=== PATIENT | female | born 1935 | race Caucasian/White ===

== ENCOUNTER 2017-04-02 11:51 | Emergency (ER) | payer OTHER, BC ==
[2017-04-02 12:05] VITALS: BP 142/73; BMI 18.4
--- NOTE | 2017-04-02 13:00 | DR.GENAD ---
HPI - PCP Primary Care Physician: JEANCARLOS MENDEZ - HPI Comment HPI Comment: PATIENT SAW BLOODIN URINE THIS AM SHE URINATED. NO PAIN. NO FEVER OR DYSURIA. - Complaint/Symptoms Chief Complaint Doctors Comments: PAINLESS HEMATURIA THIS AM. Chief Complaint:: PT STATES " AFTER BREAKFAST AND I URINATED AND I SAW BLOOD AND I HAD A HX"...... DARK RED. Self Treatment fo Chief Complaint: PT DENIES ANY PAIN,, - Nurses notes reviewed Nurses Notes Review: Yes - Source History Provided: Patient - Mode of Arrival Mode of Arrival: Ambulatory - Timing Onset of Chief Complaint: 04/02/17 Came on: Suddenly - Duration Duration: Constant Duration: Hours - Severity Severity: Moderate PMH - PMH Past Medical History: No Past Surgical History: Yes Surgical History: Hysterectomy - Family History History of Family Medical Conditions: Yes Family Medical History: Hypertension Family Medical History Comment: SKIN CANCER,, - Social History Does patient currently use any type of tobacco product: No Have you used tobacco products in the last 12 months: No Type of Tobacco Use: None Does any household member use tobacco: No Alcohol Use: None Do you use any recreational Drugs:: No Lives With: Alone Lives Where: Home - infectious screening In the last 2 months have you had wt loss of >10#?: NO Have you had fever, night sweats or hemotysis?: No Have you traveled outside the country in the last 6 months?: No Isolation: Standard ROS - Review of Systems Constitutional: No Symptoms Reported Eyes: No Symptoms Reported ENTM: No Symptoms Reported Respiratoy: No Symptoms Reported Cardiovascular: No Symptoms Reported Gastrointestinal/Abdominal: No Symptoms Reported Genitourinary: Bleeding (HEMATURIA) Neurological: No Symptoms Reported Musculoskeletal: No Symptoms Reported Integumentary: No Symptoms Reported Hematologic/Lymphatic: No Symptoms Reported Endocrine: No Symptoms Reported All Other Systems: Reviewed and Negative PE - Vital Signs Vitals: Temperature 97.2 F Pulse Rate 66 Respiratory Rate 22 Blood Pressure 142/73 O2 Sat by Pulse Oximetry 100 - General Limitations: No Limitations General Appearance: Alert - Head Head Exam: Normal Inspection - Eyes Eye exam: Normal Appearance - ENT ENT Exam: Normal External Ear Exam External Ear Exam: Normal External Inspection TM/Canal Exam: Bilateral Normal Mouth Exam: Normal Inspection Throat Exam: Normal Inspection - Neck Neck Exam: Normal Inspection - Chest Chest Inspection: Normal Inspection - Respiratory Respiratory Exam: Normal Lung Sounds Bilat Respiratory Exam: Bilateral Clear to Auscultation - Cardiovascular Cardiovascular Exam: Regular Rate, Normal Rhythm, Normal Heart Sounds - Abdominal Exam Abdominal Exam: Normal Bowel Sounds, Soft. negative: Tenderness - Extremities Extremities Exam: Normal Inspection - Back Back Exam: Normal Inspection - Neurologic Neurological Exam: Alert, Oriented X3 - Psychiatric Psychiatric Exam: Normal Affect, Normal Mood - Skin Skin Exam: Normal Color MDM - Differential Diagnosis Differential Diagnosis: HEMATURIA, UTI, KIDNEY STONE Course - Treatment Treatment: SEE ORDERS, - Education/Counseling Education/Counseling: Patient, Education Educated On: Diagnosis, Needs for Follow Up ROR - Labs Reviewed Laboratory Results Reviewed?: Yes Result Diagrams: 04/02/17 13:10 04/02/17 13:10 Laboratory: 04/02/17 12:42 Urine,Clean Catch Urine Culture - Final WBC 8.3 X10^3/uL (3.6-10.0) 04/02/17 13:10 RBC 4.12 X10^6/uL (3.5-5.4) 04/02/17 13:10 Hgb 12.7 g/dL (12.0-16.0) 04/02/17 13:10 Hct 37.6 % (36.0-47.0) 04/02/17 13:10 MCV 91.3 fL (80.0-100.0) 04/02/17 13:10 MCH 30.9 pg (27.0-34.0) 04/02/17 13:10 MCHC 33.8 g/dL (33.0-35.0) 04/02/17 13:10 RDW 12.6 % (11.6-16.5) 04/02/17 13:10 Plt Count 245 X10^3/uL (150.0-450.0) 04/02/17 13:10 MPV 7.9 fL (7.4-11.0) 04/02/17 13:10 Neut % 69.3 % (42.0-75.0) 04/02/17 13:10 Lymph % 22.0 % (21.0-51.0) 04/02/17 13:10 [place] % 6.9 % (0.0-13.0) 04/02/17 13:10 Eos % 1.1 % (0.9-2.9) 04/02/17 13:10 Baso % 0.7 % (0.2-1.0) 04/02/17 13:10 Neut # 5.8 x10^3/uL (2.2-4.8) H 04/02/17 13:10 Lymph # 1.8 X10^3/uL (1.3-2.9) 04/02/17 13:10 [place] # 0.6 x10^3/uL (0.3-0.8) 04/02/17 13:10 Eos # 0.1 x10^3/uL (0.0-0.2) 04/02/17 13:10 Baso # 0.1 X10^3/uL (0.0-0.1) 04/02/17 13:10 Absolute Nucleated RBC 0.1 /100WBC 04/02/17 13:10 Sodium 139 mmol/L (136-145) 04/02/17 13:10 Corrected Sodium TNP 04/02/17 13:10 Potassium 3.9 mmol/L (3.5-5.1) 04/02/17 13:10 Chloride 102 mmol/L (98-107) 04/02/17 13:10 Carbon Dioxide 29.7 mmol/L (21-32) 04/02/17 13:10 BUN 17 mg/dL (7-18) 04/02/17 13:10 Creatinine 0.79 mg/dL (0.55-1.02) 04/02/17 13:10 Est GFR (MDRD) Af Amer > 60 (>60) 04/02/17 13:10 Est GFR (MDRD) Non-Af > 60 (>60) 04/02/17 13:10 Glucose 88 mg/dL (65-99) 04/02/17 13:10 Calcium 9.9 mg/dL (8.5-10.1) 04/02/17 13:10 Corrected Calcium TNP 04/02/17 13:10 Total Bilirubin 0.40 mg/dL (0.2-1.0) 04/02/17 13:10 AST 20 Units/L (15-37) 04/02/17 13:10 ALT 22 Units/L (12-78) 04/02/17 13:10 Alkaline Phosphatase 67 Units/L (46-116) 04/02/17 13:10 Total Protein 7.6 g/dL (6.4-8.2) 04/02/17 13:10 Albumin 3.8 g/dL (3.4-5.0) 04/02/17 13:10 Globulin 3.8 g/dL (2.5-4.5) 04/02/17 13:10 Albumin/Globulin Ratio 1.0 Ratio (1.1-2.1) L 04/02/17 13:10 Specimen Type Clean catch urine 04/02/17 13:23 Urine Color Brown (YELLOW) 04/02/17 13:23 Urine Appearance Hazy (CLEAR) 04/02/17 13:23 Urine pH 7.0 (5.0 - 8.0) 04/02/17 13:23 Ur Specific [place] 1.010 (1.000-1.030) 04/02/17 13:23 Urine Protein 3+ (NEGATIVE) 04/02/17 13:23 Urine Glucose (UA) Negative (NEGATIVE) 04/02/17 13:23 Urine Ketones Negative (NEGATIVE) 04/02/17 13:23 Urine Occult Blood 5+ (NEGATIVE) 04/02/17 13:23 Urine Nitrite Negative (NEGATIVE) 04/02/17 13:23 Urine Bilirubin Negative (NEGATIVE) 04/02/17 13:23 Urine Urobilinogen Normal (NORMAL) 04/02/17 13:23 Ur Leukocyte Esterase 3+ (NEGATIVE) 04/02/17 13:23 Urine RBC 10-15 /HPF (NEGATIVE) 04/02/17 13:23 Urine WBC 10-15 /HPF (NEGATIVE) 04/02/17 13:23 Ur Squamous Epith Cells Few /HPF (NEGATIVE) 04/02/17 13:23 Ur Transition Epith Cell Cancelled 04/02/17 12:42 Ur Renal Epithelial Cell Cancelled 04/02/17 12:42 Calcium Oxalate Crystal Cancelled 04/02/17 12:42 Cystine Crystals Cancelled 04/02/17 12:42 Uric Acid Crystals Cancelled 04/02/17 12:42 Triple Phos Crystals Cancelled 04/02/17 12:42 Tyrosine Crystals Cancelled 04/02/17 12:42 Other Crystals Cancelled 04/02/17 12:42 Amorphous Sediment Trace /HPF (NEGATIVE) 04/02/17 13:23 Urine Bacteria Negative /HPF (NEGATIVE) 04/02/17 13:23 Hyaline Casts Cancelled 04/02/17 12:42 Granular Casts Cancelled 04/02/17 12:42 Fine Granular Casts Cancelled 04/02/17 12:42 Coarse Granular Casts Cancelled 04/02/17 12:42 WBC Casts Cancelled 04/02/17 12:42 Other Casts Cancelled 04/02/17 12:42 Urine Mucus Cancelled 04/02/17 12:42 Urine Trichomonas Cancelled 04/02/17 12:42 Urine Yeast Cancelled 04/02/17 12:42 Urine Sperm Cancelled 04/02/17 12:42 Ur Culture Indicated? No/not indicated 04/02/17 13:23 - XRAY XRAY Interpreted by: Radiologist XRAY Findings: REPORT DISCUSS WITH PATIENT. - Diagnosis Discharge Problem: Hematuria UTI (urinary tract infection) Qualifiers: Urinary tract infection type: site unspecified Hematuria presence: with hematuria Qualified Code(s): N39.0 - Urinary tract infection, site not specified ; R31.9 - Hematuria, unspecified Cholelithiasis Qualifiers: Cholelithiasis location: gallbladder Cholecystitis presence: without cholecystitis Biliary obstruction: without biliary obstruction Qualified Code(s) : K80.20 - Calculus of gallbladder without cholecystitis without obstruction - Discharge Plan Disposition: 01 HOME, SELF-CARE Condition: Stable Prescriptions: Sulfamethoxazole-Trimethoprim [BACTRIM DS TAB 800/160 MG *] 1 tab PO BID #20 tab - Follow ups/Referrals Follow ups/Referrals: ANUSHKA ARSHAD [Primary Care Provider] - 3 days - Instructions Instructions: Urinary Tract Infection, Cholelithiasis, [id number] Additional Instructions: RETURN TO ED IF WORSE.
[2017-04-02 13:24] LABS: BASOPHILS # (AUTO) 0.1 X10^3/uL (0.0-0.1); BASOPHILS % (AUTO) 0.7 % (0.2-1.0); EOSINOPHILS # (AUTO) 0.1 x10^3/uL (0.0-0.2); EOSINOPHILS % (AUTO) 1.1 % (0.9-2.9); HEMATOCRIT 37.6 % (36.0-47.0); HEMOGLOBIN 12.7 g/dL (12.0-16.0); LYMPHOCYTES # (AUTO) 1.8 X10^3/uL (1.3-2.9); MEAN CORPUSCULAR HEMOGLOBIN 30.9 pg (27.0-34.0); MEAN CORPUSCULAR HGB CONC 33.8 g/dL (33.0-35.0); MEAN CORPUSCULAR VOLUME 91.3 fL (80.0-100.0); MEAN PLATELET VOLUME 7.9 fL (7.4-11.0); MONOCYTES # (AUTO) 0.6 x10^3/uL (0.3-0.8); MONOCYTES % (AUTO) 6.9 % (0.0-13.0); NEUTROPHILS # (AUTO) 5.8 x10^3/uL (2.2-4.8); NEUTROPHILS % (AUTO) 69.3 % (42.0-75.0); PLATELET COUNT 245 X10^3/uL (150.0-450.0); RED BLOOD COUNT 4.12 X10^6/uL (3.5-5.4); RED CELL DISTRIBUTION WIDTH 12.6 % (11.6-16.5); WHITE BLOOD COUNT 8.3 X10^3/uL (3.6-10.0)
[2017-04-02 13:31] LABS: ALANINE AMINOTRANSFERASE 22 Units/L (12-78); ALBUMIN 3.8 g/dL (3.4-5.0); ALKALINE PHOSPHATASE 67 Units/L (46-116); ASPARTATE AMINO TRANSFERASE 20 Units/L (15-37); BLOOD UREA NITROGEN 17 mg/dL (7-18); CALCIUM 9.9 mg/dL (8.5-10.1); CARBON DIOXIDE 29.7 mmol/L (21-32); CHLORIDE 102 mmol/L (98-107); CREATININE 0.79 mg/dL (0.55-1.02); GLUCOSE 88 mg/dL (65-99); SODIUM 139 mmol/L (136-145); TOTAL PROTEIN 7.6 g/dL (6.4-8.2); eGFR BLACK RACES > 60 (>60); eGFR NON BLACK RACES > 60 (>60)
[2017-04-02 13:31] LABS: BILIRUBIN,URINE NEGATIVE (NEGATIVE); BLOOD/HEMOGLOBIN,URINE 5+ (NEGATIVE); GLUCOSE, URINE NEGATIVE (NEGATIVE); KETONES,URINE NEGATIVE (NEGATIVE); LEUKOCYTE ESTERASE ,URINE 3+ (NEGATIVE); NITRITES,URINE NEGATIVE (NEGATIVE); PROTEIN,URINE 3+ (NEGATIVE); UROBILINOGEN,URINE NORMAL (NORMAL)
[2017-04-02 13:45] LABS: AMORPHOUS SEDIMENT,UR TRACE /HPF (NEGATIVE); APPEARANCE,URINE HAZY (CLEAR); BACTERIA,URINE NEGATIVE /HPF (NEGATIVE); COLOR,URINE BROWN (YELLOW); SQUAMOUS EPITHELIAL CELL,UR FEW /HPF (NEGATIVE)
--- NOTE | 2017-04-02 13:46 | CT ---
HISTORY: Hematuria Study: CT abdomen and pelvis without contrast Comparison: April 2016 Technique: Multiple axial images of the abdomen and pelvis were obtained from the lung bases to the pubic symph ysis without the administration of IV contrast. Sagittal and coronal reformations were provided. Findings: There is unchanged scarring at the lung bases. The liver, spleen, pancreas, kidneys, and adrenal g lands are unremarkable in their CT appearance. There are several calcified gallstones in a nondisten ded gallbladder.. No significant mesenteric lymphadenopathy or stranding can be observed. No free fluid or free air is seen within the abdomen. The appendix recess surgically absent. There is no ab normal adnexal mass. No bowel wall thickening or bowel dilatation is present. There is mild sigmoid diverticulosis without inflammatory changes.. The base of the urinary bladder funnels to project in ferior to the symphysis pubis. No bladder calculus or mass is demonstrated. 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 IMPRESSION: 1. Cholelithiasis 2. Cystocele 3. Normal upper urinary tracts Reported By:
== END 2017-04-02 14:31 | disposition home or self-care (01) ==
LOC: ER 12:13
DX: K80.20 Calculus of gallbladder without cholecystitis without obstruction (principal); N39.0 Urinary tract infection, site not specified; R31.9 Hematuria, unspecified; N81.10 Cystocele, unspecified
CPT/HCPCS: 36415; 74176; 80053; 81001; 85025; 87086; 99283

== ENCOUNTER → 2017-07-21 | Outpatient (CLI) | payer OTHER, BC ==
--- NOTE | 2017-07-23 09:14 | MG ---
HISTORY: SCREENING Comparison: Multiple priors dating back to May 25, 2011 FINDINGS: Bilateral CC and MLO projections of the right and left breast were obtained. Heterogeneously dense f ibroglandular tissue is seen to be present without significant interval change. No suspicious zain ectural distortion, mass or clustered microcalcifications can be observed to suggest malignancy. No skin thickening or nipple retraction is appreciated. No pathological lymphadenopathy can be identif ied. Benign-appearing calcifications are noted within the right and left breast. IMPRESSION: NO RADIOGRAPHIC EVIDENCE OF MALIGNANCY. ACR CATEGORY 2 - benign findings. FOLLOW-UP EXAM 1 YEAR. Diagnostic CAD was utilized and reviewed. * 0 (ZERO) - ASSESSMENT INCOMPLETE; ADDITIONAL IMAGING IS NEEDED. * 1/ (ONE) - NEGATIVE. * 2/II (TWO) - BENIGN FINDINGS. * 3/III (THREE) - PROBABLY BENIGN FINDING; SHORT INTERVAL FOLLOW-UP SUGGESTED. * 4/IV (FOUR) - SUSPICIOUS ABNORMALITY; BIOPSY SHOULD BE CONSIDERED. * 5/V (FIVE) - HIGHLY SUSPICIOUS OF MALIGNANCY; BIOPSY SHOULD BE PERFORMED. A NEGATIVE X-RAY REPORT SHOULD NOT DELAY BIOPSY IF A DOMINANT OR CLINICALLY SUSPICIOUS MASS IS PRESENT; 4 TO 8 PERCENT OF CANCERS ARE NOT IDENTIFIED BY X-RAY. A NEGA TIVE REPORT MAY REINFORCE THE CLINICAL IMPRESSION. ADENOSIS AND DENSE BREASTS MAY OBSCURE AN UNDERLY ING NEOPLASM. Reported By:
== END ==
LOC: RAD 10:23
PROVIDERS: ATTEND Nurse Practitioner Family
DX: Z12.39 Encounter for other screening for malignant neoplasm of breast (principal)
CPT/HCPCS: 77067

== ENCOUNTER → 2018-01-18 | Outpatient (CLI) | payer OTHER, BC ==
--- NOTE | 2018-01-18 15:34 | RAD ---
Exam: Left knee three views History: 83-year-old female with left knee pain. No reported history of trauma. Comparison: None Findings: Moderate narrowing of the medial femoral compartment is present. However no other evidence of signifi cant degenerative change. No acute bony abnormality or significant knee joint effusion is present. IMPRESSION: Moderate new changes present in the medial femoral compartment. Remainder the exam is unr emarkable.. Reported By:
== END | disposition home or self-care (01) ==
LOC: RAD 14:57
PROVIDERS: ATTEND Internal Medicine
DX: M17.0 Bilateral primary osteoarthritis of knee (principal)
CPT/HCPCS: 73560

== ENCOUNTER 2018-03-14 15:01 | Observation (INO) | payer OTHER, BC ==
[2018-03-14 17:00] LABS: BASOPHILS # (AUTO) 0.1 X10^3/uL (0.0-0.1); BASOPHILS % (AUTO) 0.6 % (0.2-1.0); EOSINOPHILS # (AUTO) 0.3 x10^3/uL (0.0-0.2); HEMATOCRIT 36.7 % (36.0-47.0); HEMOGLOBIN 12.6 g/dL (12.0-16.0); LYMPHOCYTES # (AUTO) 2.5 X10^3/uL (1.3-2.9); LYMPHOCYTES % (AUTO) 29.5 % (21.0-51.0); MEAN CORPUSCULAR HEMOGLOBIN 31.3 pg (27.0-34.0); MEAN CORPUSCULAR HGB CONC 34.3 g/dL (33.0-35.0); MEAN CORPUSCULAR VOLUME 91.1 fL (80.0-100.0); MEAN PLATELET VOLUME 8.1 fL (7.4-11.0); MONOCYTES # (AUTO) 0.7 x10^3/uL (0.3-0.8); MONOCYTES % (AUTO) 8.2 % (0.0-13.0); NEUTROPHILS # (AUTO) 4.9 x10^3/uL (2.2-4.8); NEUTROPHILS % (AUTO) 58.7 % (42.0-75.0); PLATELET COUNT 254 X10^3/uL (150.0-450.0); RED BLOOD COUNT 4.03 X10^6/uL (3.5-5.4); RED CELL DISTRIBUTION WIDTH 12.6 % (11.6-16.5); WHITE BLOOD COUNT 8.4 X10^3/uL (3.6-10.0)
[2018-03-14 17:10] VITALS: BMI 18.8
[2018-03-14 17:18] LABS: ALANINE AMINOTRANSFERASE 28 Units/L (12-78); ALBUMIN 3.9 g/dL (3.4-5.0); ALKALINE PHOSPHATASE 94 Units/L (46-116); ASPARTATE AMINO TRANSFERASE 23 Units/L (15-37); BLOOD UREA NITROGEN 21 mg/dL (7-18); CALCIUM 9.3 mg/dL (8.5-10.1); CARBON DIOXIDE 27.2 mmol/L (21-32); CHLORIDE 104 mmol/L (98-107); CKMB % 2.4 % (<4); CREATINE KINASE 96 Units/L (26-192); CREATINE KINASE MB 2.3 ng/mL (0-4.0); CREATININE 0.81 mg/dL (0.55-1.02); SODIUM 139 mmol/L (136-145); TOTAL PROTEIN 7.5 g/dL (6.4-8.2); TROPONIN I < 0.02 ng/mL (0-1.5); eGFR BLACK RACES > 60 (>60); eGFR NON BLACK RACES > 60 (>60)
--- NOTE | 2018-03-14 17:29 | CT ---
HISTORY: Head injury status post fall. Study: CT brain without contrast Comparison: None. Technique: Multiple axial images of the brain were obtained from the skull base to the vertex without administra tion of IV contrast. Dose reduction techniques including Automated Exposure Control (AEC) and adjust ment of mA and kV were utilized. Findings: Age-related cortical atrophy and chronic small vessel ischemic changes. No acute intraparenchymal hem orrhage or mass can be identified. No extra-axial fluid collections are seen. No alteration in the attenuation of the brain parenchyma can be identified to suggest acute or subacute ischemic change. The ventricular system is symmetric and nondilated. The extracranial structures are grossly unremark able. IMPRESSION: No acute intracranial pathology. Reported By:
--- NOTE | 2018-03-14 17:36 | RAD ---
History: Atrial fibrillation and syncope Study: AP chest Comparison: None Findings: The lungs appear hyperinflated and are grossly clear. There is no edema or effusion or atel ectasis or consolidation. The heart size is normal and the aorta is mildly tortuous. Impression: Hyperinflation suggesting COPD. No definite acute disease. Reported By:
--- NOTE | 2018-03-14 18:10 | DR.H&P ---
H&P - History & Physical for Day of: H&P Date: 03/14/18 - Chief Complaint Chief Complaint: WEAKNESS, FALL WITH HEAD INJURY, RECENTLY DIAGNOSED WITH IRREGULAR HEART RATE - Allergies Allergies/Adverse Reactions: Allergies Allergy/AdvReac Type Severity Reaction Status Date / Time codeine Allergy Verified 03/14/18 17:20 - History of Present Illness History of Present Illness: 83 WF DIRECT ADMIT FROM DR RIDDLE OFFICE WITH CO FALL WITH HEAD INJURY. PT WAS RECENTLY STARTED ON ELIQUIS DUE TO AFIB. PT REPORTS SHE HAD HAD DIZZY SPELLS AND WEAKNESS ON AND OFF FOR SEVERAL WEEKS. PT FAMILY REPORTS SHE HAD EPISODE OF CONFUSION FOLLOWING FALL. PT COULD NOT RECALL NAMES OF FAMILY MEMBERS. PT STATES SHE FEELS OK NOW, FAMILY CONCERNED PT MAY HAVE HAD MINI STROKE. PT HAD PMH OF HTN. PT ADMITTED FOR EVALUATION AND TREATMENT OF ACUTE ILLNESS. - Past Medical History Past Medical History: Arthritis - Past Surgical History Surgical History: Appendectomy, Hysterectomy, Other - Family History Family Medical History: [place] - Social History Type of Tobacco Use: None Does any household member use tobacco: No Alcohol Use: Occasionally Drug Use: None - Review of Systems Constitutional: Weakness Eyes: No Symptoms Reported ENT: No Symptoms Reported Respiratory: No Symptoms Reported Cardiovascular: Palpitations, Light Headedness Gastrointestinal: No Symptoms Reported Genitourinary: No Symptoms Reported Musculoskeletal: Back Pain, Neck Pain Skin: No Symptoms Reported Neurological: Weakness, Confusion (EPISODE OF CONFUSION) - Physical Exam Vital Signs: Temperature 97.9 F Pulse Rate [Left Brachial] 72 Respiratory Rate 20 Blood Pressure [Left Arm] 193/91 Blood Pressure 142/73 O2 Sat by Pulse Oximetry 93 Oriented: Normal Eyes: Normal Ear: Normal Nose: Normal Throat: Normal Respiratory: RLL Diminished, LLL Diminished Cardiovascular: Irregular. negative: Edema Auscultation: Bowel Sounds: Normal Palpation: Normal Tenderness: Normal Skin: Decreased Turgur Musculoskeletal: Right, Left, Hip, Back:Lumbar Psychiatric: Anxiety Affect: Anxious Speech Pattern: Clear, Appropriate - Assessment/Plan (1) Confusion Status: Acute Plan: S/P FALL, HX RECENT DX OF AFIB. ADMIT TELEMTRY, CT HEAD. ADMISSION LABS INCLUDING CARDIAC ENZYMES, D DIMER, UA. IV HYDRATION. BP CONTROL, AM FLP. PAIN CONTROL, RESUME ELIQUIS IF CT HEAD NEGATIVE (2) Dizziness Status: Acute (3) New onset atrial fibrillation Status: Acute (4) Hypertension Status: Acute (5) Osteoarthritis Status: Acute
[2018-03-14] MEDS ORDERED: ULTRAM PO PRN (18:13)
[2018-03-14] MEDS ORDERED: ATARAX TAB 25 MG PO PRN (18:14)
[2018-03-14] MEDS: ZESTRIL TAB 5 MG PO SCH (18:31)
[2018-03-14 19:04] LABS: CKMB % 2.7 % (<4); CREATINE KINASE 100 Units/L (26-192); CREATINE KINASE MB 2.7 ng/mL (0-4.0); TROPONIN I < 0.02 ng/mL (0-1.5)
[2018-03-14 19:36] LABS: BILIRUBIN,URINE NEGATIVE (NEGATIVE); BLOOD/HEMOGLOBIN,URINE 1+ (NEGATIVE); GLUCOSE, URINE NEGATIVE (NEGATIVE); KETONES,URINE NEGATIVE (NEGATIVE); LEUKOCYTE ESTERASE ,URINE 3+ (NEGATIVE); NITRITES,URINE NEGATIVE (NEGATIVE); PROTEIN,URINE NEGATIVE (NEGATIVE); UROBILINOGEN,URINE NORMAL (NORMAL)
[2018-03-14 19:50] LABS: COLOR,URINE PALE YELLOW (YELLOW)
[2018-03-14 19:51] LABS: APPEARANCE,URINE CLEAR (CLEAR); BACTERIA,URINE NEGATIVE /HPF (NEGATIVE); RBC,URINE 0-2 /HPF (NONE SEEN); SQUAMOUS EPITHELIAL CELL,UR RARE /HPF (NEGATIVE)
--- NOTE | 2018-03-14 21:50 | VAS ---
HISTORY: Syncope, dizziness, atrial fibrillation Study: Carotid ultrasound Comparison: None Technique: Multiple lam scale and color flow Doppler images of the right and left carotid arterial s ystem were obtained. The vertebral arterial system was evaluated as well. Findings: The peak systolic velocity of the right ICA is 87 cm/sec. The peak systolic velocity of the left ICA is 79 cm/sec. The ICA/CCA ratio on the right is 1.1. The ICA/CCA ratio on the left is 0.9. Bilateral antegrade vertebral flow was noted. IMPRESSION: 1. No hemodynamically significant stenosis is appreciated. Reported By:
[2018-03-14] MEDS: ELIQUIS PO SCH (22:23)
[2018-03-15 01:40] LABS: CKMB % 2.7 % (<4); CREATINE KINASE 68 Units/L (26-192); CREATINE KINASE MB 1.8 ng/mL (0-4.0); TROPONIN I < 0.02 ng/mL (0-1.5)
[2018-03-15 05:28] LABS: BASOPHILS # (AUTO) 0.1 X10^3/uL (0.0-0.1); BASOPHILS % (AUTO) 0.9 % (0.2-1.0); EOSINOPHILS # (AUTO) 0.3 x10^3/uL (0.0-0.2); EOSINOPHILS % (AUTO) 4.4 % (0.9-2.9); HEMATOCRIT 33.7 % (36.0-47.0); HEMOGLOBIN 11.7 g/dL (12.0-16.0); LYMPHOCYTES # (AUTO) 2.3 X10^3/uL (1.3-2.9); LYMPHOCYTES % (AUTO) 34.5 % (21.0-51.0); MEAN CORPUSCULAR HEMOGLOBIN 32.1 pg (27.0-34.0); MEAN CORPUSCULAR HGB CONC 34.7 g/dL (33.0-35.0); MEAN CORPUSCULAR VOLUME 92.3 fL (80.0-100.0); MEAN PLATELET VOLUME 8.6 fL (7.4-11.0); MONOCYTES # (AUTO) 0.6 x10^3/uL (0.3-0.8); MONOCYTES % (AUTO) 9.2 % (0.0-13.0); NEUTROPHILS # (AUTO) 3.4 x10^3/uL (2.2-4.8); PLATELET COUNT 213 X10^3/uL (150.0-450.0); RED BLOOD COUNT 3.65 X10^6/uL (3.5-5.4); RED CELL DISTRIBUTION WIDTH 12.7 % (11.6-16.5); WHITE BLOOD COUNT 6.8 X10^3/uL (3.6-10.0)
[2018-03-15 05:50] LABS: ALANINE AMINOTRANSFERASE 23 Units/L (12-78); ALKALINE PHOSPHATASE 75 Units/L (46-116); ASPARTATE AMINO TRANSFERASE 20 Units/L (15-37); BLOOD UREA NITROGEN 19 mg/dL (7-18); CHLORIDE 108 mmol/L (98-107); CKMB % 2.5 % (<4); COR CA(FOR HYPOALB) 8.8 mg/dL (8.5-10.1); CREATINE KINASE 65 Units/L (26-192); CREATINE KINASE MB 1.6 ng/mL (0-4.0); CREATININE 0.81 mg/dL (0.55-1.02); SODIUM 141 mmol/L (136-145); TOTAL PROTEIN 6.1 g/dL (6.4-8.2); TROPONIN I < 0.02 ng/mL (0-1.5); eGFR BLACK RACES > 60 (>60); eGFR NON BLACK RACES > 60 (>60)
[2018-03-15] MEDS: ELIQUIS PO SCH (08:43)
[2018-03-15] MEDS: ZESTRIL TAB 5 MG PO SCH (08:43)
[2018-03-15 12:15] VITALS: BP 142/65
--- NOTE | 2018-03-15 14:58 | RAD ---
HISTORY: Status post fall on Wednesday. Right hip pain. Study: Right hip: Two views. [id number] artifact from the film cassette is noted on the frog leg lateral Comparison: None Findings: Mild osteopenia is noted. Mild degenerative changes present in both sacroiliac joints. The pubic ra mi are intact. Right hip shows minimal acetabular spurring. Very minimal joint space narrowing is noted. The femor al head contour and femoral neck are intact. Similar findings are noted on the left. IMPRESSION: 1. Mild degenerative change in the right hip. 2. No acute bony abnormalities are identified given limitations as described above with regards to t he lateral hip x-rayed. Reported By:
== END 2018-03-15 14:10 | disposition home or self-care (01) ==
LOC: MED/SURG 15:01
PROVIDERS: ADMIT Internal Medicine; ATTEND Internal Medicine
DX: R41.82 Altered mental status, unspecified (principal); S09.8XXA Other specified injuries of head, initial encounter; R42 Dizziness and giddiness; I48.91 Unspecified atrial fibrillation; I10 Essential (primary) hypertension; M19.90 Unspecified osteoarthritis, unspecified site; R94.31 Abnormal electrocardiogram [ECG] [EKG]; W19.XXXA Unspecified fall, initial encounter; M25.551 Pain in right hip
CPT/HCPCS: 36415; 70450; 71045; 73501; 80053; 81001; 82550; 82553; 84484; 85025; 85378; 93005; 93010; 93880; A4222; G0378

== ENCOUNTER 2018-04-16 21:39 | Observation (INO) ==
[2018-04-16 21:53] LABS: BASOPHILS # (AUTO) 0.1 X10^3/uL (0.0-0.1); BASOPHILS % (AUTO) 1.1 % (0.2-1.0); EOSINOPHILS # (AUTO) 0.1 x10^3/uL (0.0-0.2); HEMATOCRIT 36.2 % (36.0-47.0); HEMOGLOBIN 12.3 g/dL (12.0-16.0); LYMPHOCYTES # (AUTO) 2.9 X10^3/uL (1.3-2.9); LYMPHOCYTES % (AUTO) 38.7 % (21.0-51.0); MEAN CORPUSCULAR HEMOGLOBIN 31.4 pg (27.0-34.0); MEAN CORPUSCULAR HGB CONC 34.1 g/dL (33.0-35.0); MEAN CORPUSCULAR VOLUME 91.9 fL (80.0-100.0); MEAN PLATELET VOLUME 7.9 fL (7.4-11.0); MONOCYTES # (AUTO) 0.6 x10^3/uL (0.3-0.8); MONOCYTES % (AUTO) 7.9 % (0.0-13.0); NEUTROPHILS # (AUTO) 3.7 x10^3/uL (2.2-4.8); NEUTROPHILS % (AUTO) 50.3 % (42.0-75.0); PLATELET COUNT 236 X10^3/uL (150.0-450.0); RED BLOOD COUNT 3.93 X10^6/uL (3.5-5.4); RED CELL DISTRIBUTION WIDTH 12.8 % (11.6-16.5); WHITE BLOOD COUNT 7.4 X10^3/uL (3.6-10.0)
--- NOTE | 2018-04-16 21:59 | DR.WEAKNES ---
HPI - Time Seen Time seen: 21:35 - Primary Care Physician Primary Care Physician: JEANCARLOS - Complaints Chief Complaint:: EMS OUT TO UNRESPONSIVE PT AT 2110. PT UNRESPONSIVE UNTIL EMS GOT PT ON STRETCHER. PT AROUSING TO VERBAL STUMILI BUT UNABLE TO SPEAK CLEARLY. SLURRED SPEECH NOTED. VITAL SIGNS 74/57, PULSE 60 RESP 16 O2 96%. RECHECKED VS 137/81, BLOOD SUGAR 134. FAMILY WITNESS PT EVENT HAPPENING. - Reviewed Nurses Notes Reviewed: Yes - Source History Provided: EMS - Mode of Arrival Mode of Arrival: EMS - Timing Onset of Chief Complaint: 04/16/18 Since onset, symptoms are:: Improved Symptom Onset: Known - Context Stroke Symptoms: None PMH - PMH Past Medical History: Yes Past Medical History: Arthritis Past Surgical History: Yes Surgical History: Appendectomy, Hysterectomy, Other Past Surgical History Comment: VARICOUS VEIN - Family History History of Family Medical Conditions: Yes Family Medical History: [place] - Social History Does patient currently use any type of tobacco product: No Have you used tobacco products in the last 12 months: No Type of Tobacco Use: None Does any household member use tobacco: No Alcohol Use: None Do you use any recreational Drugs:: No Lives With: Alone Lives Where: Home - infectious screening In the last 2 months have you had wt loss of >10#?: NO Have you had fever, night sweats or hemotysis?: No Have you traveled outside the country in the last 6 months?: No Isolation: Standard ROS - Review of Systems Constitutional: No Symptoms Reported Eyes: No Symptoms Reported ENTM: No Symptoms Reported Respiratoy: No Symptoms Reported Cardiovascular: No Symptoms Reported Gastrointestinal/Abdominal: No Symptoms Reported Genitourinary: No Symptoms Reported Neurological: Speech Problem, Other (Syncope) Musculoskeletal: No Symptoms Reported Integumentary: No Symptoms Reported Hematologic/Lymphatic: No Symptoms Reported Endocrine: No Symptoms Reported Psychiatric: No Symptoms Reported All Other Systems: Reviewed and Negative PE - General Limitations: Altered Mental Status General Appearance: In No Apparent Distress, Lethargic (but easily aroused) - Head Head Exam: Normal Inspection - Eyes Eye exam: Normal Appearance, PERRL, EOMI - ENT ENT Exam: Normal Exam - Neck Neck Exam: Normal Inspection - Chest Chest Inspection: Normal Inspection, Symmetric Chest Wall Rise - Respiratory Respiratory Exam: Normal Lung Sounds Bilat - Cardiovascular Cardiovascular Exam: Regular Rate, Normal Rhythm, Normal Heart Sounds, +S1, +S2 - Abdominal Exam Abdominal Exam: Normal Inspection, Normal Bowel Sounds, Soft - Extremities Extremities Exam: Normal Inspection - Back Back Exam: Normal Inspection - Neurologic Patient Oriented To: negative: Person, Place, Time Speech: Fluid Speech - Psychiatric Psychiatric Exam: Normal Affect, Normal Mood - Skin Skin Exam: Warm, Dry, Intact, Normal Color - Vital Signs Vitals: Temperature 97.4 F Pulse Rate [Right Radial] 74 Pulse Rate 65 Respiratory Rate 23 Blood Pressure [Left Arm] 171/78 Blood Pressure 123/91 O2 Sat by Pulse Oximetry 100 ROR - Labs Reviewed Result Diagrams: 04/16/18 21:40 04/16/18 21:40 - XRAY XRAY Interpreted by: Radiologist (No acute intracranial abnormality) - EKG Rate: 69 Rhythm: NSR Block: None Hypertrophy: None ST: Normal - Labs Reviewed Laboratory: WBC 7.4 X10^3/uL (3.6-10.0) 04/16/18 21:40 RBC 3.93 X10^6/uL (3.5-5.4) 04/16/18 21:40 Hgb 12.3 g/dL (12.0-16.0) 04/16/18 21:40 Hct 36.2 % (36.0-47.0) 04/16/18 21:40 MCV 91.9 fL (80.0-100.0) 04/16/18 21:40 MCH 31.4 pg (27.0-34.0) 04/16/18 21:40 MCHC 34.1 g/dL (33.0-35.0) 04/16/18 21:40 RDW 12.8 % (11.6-16.5) 04/16/18 21:40 Plt Count 236 X10^3/uL (150.0-450.0) 04/16/18 21:40 MPV 7.9 fL (7.4-11.0) 04/16/18 21:40 Neut % (Auto) 50.3 % (42.0-75.0) 04/16/18 21:40 Lymph % (Auto) 38.7 % (21.0-51.0) 04/16/18 21:40 [place] % (Auto) 7.9 % (0.0-13.0) 04/16/18 21:40 Eos % (Auto) 2.0 % (0.9-2.9) 04/16/18 21:40 Baso % (Auto) 1.1 % (0.2-1.0) H 04/16/18 21:40 Neut # (Auto) 3.7 x10^3/uL (2.2-4.8) 04/16/18 21:40 Lymph # (Auto) 2.9 X10^3/uL (1.3-2.9) 04/16/18 21:40 [place] # (Auto) 0.6 x10^3/uL (0.3-0.8) 04/16/18 21:40 Eos # (Auto) 0.1 x10^3/uL (0.0-0.2) 04/16/18 21:40 Baso # (Auto) 0.1 X10^3/uL (0.0-0.1) 04/16/18 21:40 Absolute Nucleated RBC 0.0 /100WBC 04/16/18 21:40 INR Target Range - 04/16/18 21:40 INR 0.93 (0.8-1.3) 04/16/18 21:40 APTT 25.9 SECONDS (22.9-36.5) 04/16/18 21:40 PTT Comment - 04/16/18 21:40 Fibrinogen 343 mg/dL (239-489) 04/16/18 21:40 Sodium 143 mmol/L (136-145) 04/16/18 21:40 Corrected Sodium 144 mmol/L (136-145) 04/16/18 21:40 Potassium 3.6 mmol/L (3.5-5.1) 04/16/18 21:40 Chloride 104 mmol/L (98-107) 04/16/18 21:40 Carbon Dioxide 26.5 mmol/L (21-32) 04/16/18 21:40 BUN 22 mg/dL (7-18) H 04/16/18 21:40 Creatinine 1.13 mg/dL (0.55-1.02) H 04/16/18 21:40 Est GFR (MDRD) Af Amer 59 (>60) 04/16/18 21:40 Est GFR (MDRD) Non-Af 49 (>60) L 04/16/18 21:40 Glucose 128 mg/dL (65-99) H 04/16/18 21:40 Calcium 9.4 mg/dL (8.5-10.1) 04/16/18 21:40 Corrected Calcium TNP 04/16/18 21:40 Total Bilirubin 0.20 mg/dL (0.2-1.0) 04/16/18 21:40 AST 24 Units/L (15-37) 04/16/18 21:40 ALT 24 Units/L (12-78) 04/16/18 21:40 Alkaline Phosphatase 90 Units/L (46-116) 04/16/18 21:40 Creatine Kinase 102 Units/L (26-192) 04/16/18 21:40 CK-MB (CK-2) 2.5 ng/mL (0-4.0) 04/16/18 21:40 CK/CKMB % Calc 2.5 % (<4) 04/16/18 21:40 Troponin I < 0.02 ng/mL (0-1.5) 04/16/18 21:40 Total Protein 7.3 g/dL (6.4-8.2) 04/16/18 21:40 Albumin 3.9 g/dL (3.4-5.0) 04/16/18 21:40 Globulin 3.4 g/dL (2.5-4.5) 04/16/18 21:40 Albumin/Globulin Ratio 1.1 Ratio (1.1-2.1) 04/16/18 21:40 Triglycerides 80 mg/dL (0-150) 04/16/18 21:40 Cholesterol 210 mg/dL (0-200) H 04/16/18 21:40 LDL Cholesterol, Calc 92 mg/dL (0-100) 04/16/18 21:40 HDL Cholesterol 102 mg/dL (40-60) H 04/16/18 21:40 Cholesterol/HDL Ratio 2.1 (0.0-5.0) 04/16/18 21:40 Specimen Type Catherized urine 04/16/18 22:24 Urine Color Yellow (YELLOW) 04/16/18 22:24 Urine Appearance Clear (CLEAR) 04/16/18 22:24 Urine pH 6.5 (5.0 - 8.0) 04/16/18 22:24 Ur Specific [place] 1.010 (1.000-1.030) 04/16/18 22:24 Urine Protein 1+ (NEGATIVE) 04/16/18 22:24 Urine Glucose (UA) Negative (NEGATIVE) 04/16/18 22:24 Urine Ketones Negative (NEGATIVE) 04/16/18 22:24 Urine Occult Blood Negative (NEGATIVE) 04/16/18 22:24 Urine Nitrite Negative (NEGATIVE) 04/16/18 22:24 Urine Bilirubin Negative (NEGATIVE) 04/16/18 22:24 Urine Urobilinogen Normal (NORMAL) 04/16/18 22:24 Ur Leukocyte Esterase Negative (NEGATIVE) 04/16/18 22:24 Urine RBC 0-2 /HPF (NONE SEEN) 04/16/18 22:24 Urine WBC 0-2 /HPF (NONE SEEN) 04/16/18 22:24 Ur Squamous Epith Cells Few /HPF (NEGATIVE) 04/16/18 22:24 Urine Bacteria Negative /HPF (NEGATIVE) 04/16/18 22:24 Ur Culture Indicated? No/not indicated 04/16/18 22:24 - Diagnosis Discharge Problem: Syncope, Confusion, Hypotension - Discharge Plan Disposition: 09 ADMITTED INPATIENT Condition: Stable - Follow ups/Referrals Follow ups/Referrals: ANUSHKA ARSHAD [Primary Care Provider] - 3 days - Instructions Instructions: Syncope
[2018-04-16 22:10] LABS: BLOOD UREA NITROGEN 22 mg/dL (7-18); CALCIUM 9.4 mg/dL (8.5-10.1); CARBON DIOXIDE 26.5 mmol/L (21-32); CHLORIDE 104 mmol/L (98-107); COR NA(FOR HYPERGLY) 144 mmol/L (136-145); CREATININE 1.13 mg/dL (0.55-1.02); SODIUM 143 mmol/L (136-145); TROPONIN I < 0.02 ng/mL (0-1.5); eGFR NON BLACK RACES 49 (>60)
[2018-04-16 22:26] LABS: ALANINE AMINOTRANSFERASE 24 Units/L (12-78); ALBUMIN 3.9 g/dL (3.4-5.0); ALKALINE PHOSPHATASE 90 Units/L (46-116); ASPARTATE AMINO TRANSFERASE 24 Units/L (15-37); CHOL/HDL RATIO 2.1 (0.0-5.0); CHOLESTEROL 210 mg/dL (0-200); CKMB % 2.5 % (<4); CREATINE KINASE 102 Units/L (26-192); CREATINE KINASE MB 2.5 ng/mL (0-4.0); HDL CHOLESTEROL 102 mg/dL (40-60); TOTAL PROTEIN 7.3 g/dL (6.4-8.2); TRIGLYCERIDES 80 mg/dL (0-150)
--- NOTE | 2018-04-16 22:26 | CT ---
HISTORY: Altered mental status Study: CT brain without contrast Comparison: 03/14/2018 Technique: Multiple axial images of the brain were obtained without administration of IV contrast. Dose reducti on techniques including Automated Exposure Control (AEC) and adjustment of mA and kV were utilized. Findings: There is cerebral volume loss and nonspecific white matter hypoattenuation likely related to chronic microvascular ischemic changes. No evidence of acute hemorrhage, midline shift, mass effect or abnor mal extra-axial fluid collection. The ventricular system is symmetric and nondilated. The soft tiss ues and osseous structures are unremarkable. The visualized paranasal sinuses are clear. IMPRESSION: 1. Stable exam without acute intracranial abnormality. Reported By:
[2018-04-16 22:32] LABS: BILIRUBIN,URINE NEGATIVE (NEGATIVE); BLOOD/HEMOGLOBIN,URINE NEGATIVE (NEGATIVE); GLUCOSE, URINE NEGATIVE (NEGATIVE); KETONES,URINE NEGATIVE (NEGATIVE); LEUKOCYTE ESTERASE ,URINE NEGATIVE (NEGATIVE); NITRITES,URINE NEGATIVE (NEGATIVE); PH,URINE 6.5 (5.0 - 8.0); PROTEIN,URINE 1+ (NEGATIVE); UROBILINOGEN,URINE NORMAL (NORMAL)
[2018-04-16 22:41] LABS: APPEARANCE,URINE CLEAR (CLEAR); COLOR,URINE YELLOW (YELLOW)
[2018-04-16 22:42] LABS: BACTERIA,URINE NEGATIVE /HPF (NEGATIVE); RBC,URINE 0-2 /HPF (NONE SEEN); SQUAMOUS EPITHELIAL CELL,UR FEW /HPF (NEGATIVE)
[2018-04-17 01:02] VITALS: BMI 17.7
[2018-04-17 06:00] LABS: BLOOD UREA NITROGEN 21 mg/dL (7-18); CALCIUM 8.9 mg/dL (8.5-10.1); CARBON DIOXIDE 26.9 mmol/L (21-32); CHLORIDE 106 mmol/L (98-107); CREATININE 0.93 mg/dL (0.55-1.02); SODIUM 141 mmol/L (136-145); eGFR NON BLACK RACES > 60 (>60)
[2018-04-17 06:13] LABS: BASOPHILS # (AUTO) 0.1 X10^3/uL (0.0-0.1); EOSINOPHILS # (AUTO) 0.2 x10^3/uL (0.0-0.2); EOSINOPHILS % (AUTO) 2.5 % (0.9-2.9); HEMATOCRIT 33.6 % (36.0-47.0); HEMOGLOBIN 11.7 g/dL (12.0-16.0); LYMPHOCYTES # (AUTO) 1.9 X10^3/uL (1.3-2.9); LYMPHOCYTES % (AUTO) 25.6 % (21.0-51.0); MEAN CORPUSCULAR HEMOGLOBIN 32.2 pg (27.0-34.0); MEAN CORPUSCULAR HGB CONC 34.8 g/dL (33.0-35.0); MEAN CORPUSCULAR VOLUME 92.4 fL (80.0-100.0); MEAN PLATELET VOLUME 8.1 fL (7.4-11.0); MONOCYTES # (AUTO) 0.8 x10^3/uL (0.3-0.8); MONOCYTES % (AUTO) 11.1 % (0.0-13.0); NEUTROPHILS # (AUTO) 4.4 x10^3/uL (2.2-4.8); NEUTROPHILS % (AUTO) 59.8 % (42.0-75.0); PLATELET COUNT 219 X10^3/uL (150.0-450.0); RED BLOOD COUNT 3.63 X10^6/uL (3.5-5.4); RED CELL DISTRIBUTION WIDTH 12.6 % (11.6-16.5); WHITE BLOOD COUNT 7.3 X10^3/uL (3.6-10.0)
[2018-04-17 07:37] LABS: CKMB % 2.1 % (<4); CREATINE KINASE 81 Units/L (26-192); CREATINE KINASE MB 1.7 ng/mL (0-4.0); TROPONIN I < 0.02 ng/mL (0-1.5)
[2018-04-17] MEDS ORDERED: ASPIRIN PO SCH (09:00)
[2018-04-17] MEDS ORDERED: PATIENT'S HOME MEDICATION (Apixaban [Eliquis] 2.5 MG) PO SCH (09:00)
[2018-04-17] MEDS ORDERED: ELIQUIS PO SCH (09:00)
[2018-04-17] MEDS ORDERED: ASPIRIN EC 81 MG PO SCH (10:00)
[2018-04-17] MEDS ORDERED: PLAVIX PO SCH (15:00)
[2018-04-17] MEDS ORDERED: ZESTRIL TAB 20 MG ONE (16:28)
[2018-04-17] MEDS ORDERED: ZESTRIL TAB 20 MG PO SCH (17:00)
[2018-04-17 17:25] VITALS: BP 175/79
== END 2018-04-17 15:00 | disposition home or self-care (01) ==
LOC: ER 21:39 → ICU 21:39 → UNDODISOB 04-17 15:00
PROVIDERS: ADMIT Obstetrics & Gynecology Obstetrics; ATTEND Internal Medicine
DX: I95.89 Other hypotension; Z79.899 Other long term (current) drug therapy; G45.8 Other transient cerebral ischemic attacks and related syndromes; R55 Syncope and collapse; R73.09 Other abnormal glucose; R94.4 Abnormal results of kidney function studies; R41.82 Altered mental status, unspecified
CPT/HCPCS: 36415; 51702; 70450; 80048; 80053; 80061; 81001; 82550; 82553; 84484; 85025; 85384; 85610; 85730; 93005; 93010; 96365; 99284; A4216; G0378

== ENCOUNTER 2021-09-17 10:56 | Observation (INO) ==
[2021-09-17 11:10] VITALS: BMI 17.6
--- NOTE | 2021-09-17 11:35 | DR.AMS ---
HPI Time Seen Time Seen by Provider: 09/17/21 11:22 PCP Primary Care Physician: Juan David GUPTAP HPI Comment HPI Comment: An 86 y/o female presenting with a c/o speech finding this morning. She was dizzy and had nausea. Her symptoms have subsided. There was no palpitations, SOB or c/p. Complaint Chief Complaint:: PT STATES THAT SHE WAS IN HER YARD, AND THE YARD MAN CALLED FRIENDS AND SHE COULD NOT TALK OR REMEMBERED WHO SHE WAS , DIZZY , AND NAUSEATED THIS STARTED ABOUT AN HOUR AGO, WHEN NEIGHBOR GOT THERE , SHE COULD NOT GET HER WORDS OUT, THAN THE SYMPTOMS SUBSIDED,,, BR Self Treatment fo Chief Complaint: PT WENT TO [facility] AND PT SENT TO ER TO BE EVALUATED ,JUSTIN COVID-19 Coronavirus risk:travel/contact w/high risk person: No Has patient experienced Coronavirus symptoms: No Reviewed Nurses Notes Reviewed: Yes Source History Provided: Patient Mode of Arrival Mode of Arrival: Wheelchair Timing Onset of Chief Complaint: 09/17/21 Came On: Gradually Symptoms: Improving (resolved) Symptom Onset: Known PMH PMH Past Medical History: Yes Past Medical History: Arthritis Past Medical History Comment: AFIB. Past Surgical History: Yes Surgical History: Appendectomy and Hysterectomy Past Surgical History Comment: PACEMAKER Family History History of Family Medical Conditions: Yes Family Medical History: [place] Social History Does patient currently use any type of tobacco product: No Have you used tobacco products in the last 12 months: No Type of Tobacco Use: None Does any household member use tobacco: No Alcohol Use: None Do you use any recreational Drugs:: No Lives With: Alone Lives Where: Home Travel Risk Coronavirus risk:travel/contact w/high risk person: No Has patient experienced Coronavirus symptoms: No Infectious screening In the last 2 months have you had wt loss of >10#?: NO Have you had fever, night sweats or hemotysis?: No Have you traveled outside the country in the last 6 months?: No Isolation: Standard ROS Review of Systems Constitutional: No Symptoms Reported Eyes: No Symptoms Reported ENTM: No Symptoms Reported Respiratoy: No Symptoms Reported Cardiovascular: No Symptoms Reported Gastrointestinal/Abdominal: No Symptoms Reported Genitourinary: No Symptoms Reported Neurological: Dizziness and Other (Transient inability to speak ) Musculoskeletal: No Symptoms Reported Integumentary: No Symptoms Reported Hematologic/Lymphatic: No Symptoms Reported Endocrine: No Symptoms Reported Psychiatric: No Symptoms Reported PE Vitals Vital Signs: Temp Pulse Resp BP BP Pulse Ox 09/17/21 13:15 73 89 L 09/17/21 13:00 72 161/83 93 L 09/17/21 12:45 69 94 L 09/17/21 12:30 70 175/79 09/17/21 12:00 74 09/17/21 11:46 83 L 09/17/21 11:30 73 163/80 89 L 09/17/21 11:28 78 09/17/21 10:57 97.6 F 73 22 167/90 98 04/17/18 17:25 175/79 175/79 General Limitations: No Limitations General Appearance: Alert and In No Apparent Distress Head Head Exam: Normal Inspection, Atraumatic and Normocephalic Eyes Eye exam: Normal Appearance and EOMI ENT ENT Exam: Normal Exam, Normal Oropharynx, Normal External Ear Exam and Mucous Membranes Moist Neck Neck Exam: Normal Inspection, Full ROM and Trachea Midline Chest Chest Inspection: Normal Inspection and Symmetric Chest Wall Rise Respiratory Respiratory Exam: Normal Lung Sounds Bilat Cardiovascular Cardiovascular Exam: Regular Rate, Normal Rhythm, Normal Heart Sounds, +S1 and +S2 Abdominal Exam Abdominal Exam: Normal Inspection, Normal Bowel Sounds and Soft Extremities Extremities Exam: Normal Inspection and Full ROM Back Back Exam: Normal Inspection and Full ROM Neurological Neurological Exam: Alert and Oriented X3 Psychological Psychiatric Exam: Normal Affect and Normal Mood Skin Skin Exam: Intact COURSE Treatment Treatment: I spoke with the pt. about her presentation and test results. My recommendation is for admission into Observation status and have further indicated tests done while here. However, she is adamant about going home now. She states that she is expecting a daughter from out of town and will let me know what their conclusion is. She later informed me now that she has agreed to stay and be admitted as I had recommended. Reevaluation 1st: Unchanged Consultation Consultation Comments: Name: SEBLE NIELSEN CAcct#: [id number]: [id number] : 1935Sex: FLocation: ER Order Number(s): [id number](s):CHEST, 1 VIEW Ordering Physician: MARY KAY SHARMA Primary Care: [facility] Service Date: 09/17/21 Service Time: 1123 HISTORY PT STATES THAT SHE WAS IN HER YARD, AND THE YARD MAN CALLED FRIENDS AND SHE COULD NOT TALK OR REMEMBERED WHO SHE WAS, DIZZY, AND NAUSEATED THIS STARTED ABOUT AN HOUR AGO, WHEN NEIGHBOR GOT THERE, SHE COULD NOT GET HER WORDS OUT STUDY CHEST x-ray, 1 VIEW COMPARISON None available FINDINGS Cardiac device leads are directed towards the right atrial appendage and slightly towards the left side of the heart. The ventricular lead has abnormal location. Correlation with function is recommended. Heart is normal in size without evidence of CHF. COPD changes are present. Calcified granuloma are seen. No pneumothorax, focal infiltrate, or pleural effusion is seen. IMPRESSION Abnormal location of the ventricular lead of the pacemaker. Correlation with function is recommended. No evidence of CHF is seen. There is COPD. Electronically signed by: Michael Laird (Sep 17, 2021 12:00:29) Report Electronically signed: 09/17/21 1202 CC: Mary Kay Sharma Education/Counseling Education/Counseling: Patient, Education and Counseling Educated On: Treatment, Diagnosis, Prognosis and Needs for Follow Up ROR Labs Reviewed Laboratory Results Reviewed?: Yes Result Diagrams: 09/17/21 11:53 09/17/21 11:53 Laboratory: WBC 10.2 X10^3/uL (3.6-10.0) H 09/17/21 11:53 RBC 3.84 X10^6/uL (3.5-5.4) 09/17/21 11:53 Hgb 12.1 g/dL (12.0-16.0) 09/17/21 11:53 Hct 35.3 % (36.0-47.0) L 09/17/21 11:53 MCV 91.9 fL (80.0-100.0) 09/17/21 11:53 MCH 31.6 pg (27.0-34.0) 09/17/21 11:53 MCHC 34.4 g/dL (33.0-35.0) 09/17/21 11:53 RDW 12.5 % (11.6-16.5) 09/17/21 11:53 Plt Count 264 X10^3/uL (150.0-450.0) 09/17/21 11:53 MPV 7.4 fL (7.4-11.0) 09/17/21 11:53 Neut % (Auto) 68.1 % (42.0-75.0) 09/17/21 11:53 Lymph % (Auto) 21.4 % (21.0-51.0) 09/17/21 11:53 [place] % (Auto) 8.7 % (0.0-13.0) 09/17/21 11:53 Eos % (Auto) 1.0 % (0.9-2.9) 09/17/21 11:53 Baso % (Auto) 0.8 % (0.2-1.0) 09/17/21 11:53 Neut # (Auto) 7.0 x10^3/uL (2.2-4.8) H 09/17/21 11:53 Lymph # (Auto) 2.2 X10^3/uL (1.3-2.9) 09/17/21 11:53 [place] # (Auto) 0.9 x10^3/uL (0.3-0.8) H 09/17/21 11:53 Eos # (Auto) 0.1 x10^3/uL (0.0-0.2) 09/17/21 11:53 Baso # (Auto) 0.1 X10^3/uL (0.0-0.1) 09/17/21 11:53 Absolute Nucleated RBC 0.1 /100WBC 09/17/21 11:53 PT 13.4 SECONDS (11.8-14.3) 09/17/21 11:53 INR Target Range - 09/17/21 11:53 INR 1.07 (0.8-1.3) 09/17/21 11:53 Sodium 135 mmol/L (136-145) L 09/17/21 11:53 Corrected Sodium TNP 09/17/21 11:53 Potassium 4.4 mmol/L (3.5-5.1) 09/17/21 11:53 Chloride 99 mmol/L (98-107) 09/17/21 11:53 Carbon Dioxide 32.9 mmol/L (21-32) H 09/17/21 11:53 BUN 16 mg/dL (7-18) 09/17/21 11:53 Creatinine 0.74 mg/dL (0.55-1.02) 09/17/21 11:53 Est GFR (MDRD) Af Amer > 60 (>60) 09/17/21 11:53 Est GFR (MDRD) Non-Af > 60 (>60) 09/17/21 11:53 Glucose 91 mg/dL (65-99) 09/17/21 11:53 Calcium 9.6 mg/dL (8.5-10.1) 09/17/21 11:53 Corrected Calcium TNP 09/17/21 11:53 Total Bilirubin 0.30 mg/dL (0.2-1.0) 09/17/21 11:53 AST 20 Units/L (15-37) 09/17/21 11:53 ALT 20 Units/L (12-78) 09/17/21 11:53 Alkaline Phosphatase 63 Units/L (46-116) 09/17/21 11:53 Creatine Kinase 72 Units/L (26-192) 09/17/21 11:53 CK-MB (CK-2) 1.7 ng/mL (0-4.0) 09/17/21 11:53 CK/CKMB % Calc 2.4 % (<4) 09/17/21 11:53 Troponin I < 0.02 ng/mL (0-1.5) 09/17/21 11:53 Total Protein 7.2 g/dL (6.4-8.2) 09/17/21 11:53 Albumin 3.6 g/dL (3.4-5.0) 09/17/21 11:53 Globulin 3.6 g/dL (2.5-4.5) 09/17/21 11:53 Albumin/Globulin Ratio 1.0 Ratio (1.1-2.1) L 09/17/21 11:53 EKG Rate: 71 [place]: Normal Rhythm: Paced Block: None Hypertrophy: None ST: Normal Opioid Opioid Risk Tool Age (David box if 16-45): No History of Preadolescent Sexual Abuse: No Total: 0 Total Score Risk Category: Low Risk Copyright: Rj GUERRA predicting aberrant behaviors Diagnosis Discharge Problem: Acute reversible ischemic neurologic deficit, Brain TIA, Benign essential HTN, Pacemaker A-fib Qualifiers: Atrial fibrillation type: unspecified Qualified Code(s): I48.91 - Unspecified atrial fibrillation ADDITIONAL NOTES Additional Notes Additional Notes: Name: SEBLE NIELSEN CAcct#: [id number]: [id number] : 1935Sex: FLocation: ER Order Number(s): [id number](s):BRAIN W/O CON Ordering Physician: MARY KAY SHARMA Primary Care: [facility] Service Date: 09/17/21 Service Time: 1125 HISTORY PT STATES SHE COULD NOT TALK OR REMEMBERED WHO SHE WAS, DIZZY, AND NAUSEATED, SHE COULD NOT GET HER WORDS OUT, FERMIN TRUNCATED .. STUDY CT brain without IV contrast COMPARISON None TECHNIQUE Multiple axial images of the brain were obtained without IV contrast. Dose reduction techniques including Automated Exposure Control (AEC) and adjustment of mA and kV were utilized. FINDINGS Visualized portions of the paranasal sinuses and mastoid air cells are clear. No calvarial fracture is seen. No acute intracranial hemorrhage or mass effect is seen. Prominent diffuse volume loss is seen in the brain with compensatory enlargement of the ventricular system. No evidence of acute CVA. 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 Probable old lacunar infarcts are seen in the aniya. Mild chronic small vessel ischemic changes are seen in the periventricular white matter. IMPRESSION Mild chronic small vessel ischemic changes are seen with prominent diffuse volume loss in the brain. Consider possible dementia. No evidence of acute CVA. Electronically signed by: Michael Laird (Sep 17, 2021 12:03:39) Report Electronically signed: 09/17/21 1202 CC: Mary Kay Sharma
--- NOTE | 2021-09-17 12:02 | RAD ---
HISTORYPT STATES THAT SHE WAS IN HER YARD, AND THE YARD MAN CALLED FRIENDS AND SHE COULD NOT TALK OR REMEMBERED WHO SHE WAS, DIZZY, AND NAUSEATED THIS STARTED ABOUT AN HOUR AGO, WHEN NEIGHBOR GOT THERE, SHE COULD NOT GET HER WORDS OUTSTUDYCHEST x-ray, 1 VIEWCOMPARISONNone availableFINDINGSCardiac device leads are directed towards the right atrial appendage and slightly towards the left side of the heart. The ventricular lead has abnormal location. Correlation with function is recommended.Heart is normal in size without evidence of CHF. COPD changes are present. Calcified granuloma are seen. No pneumothorax, focal infiltrate, or pleural effusion is seen.IMPRESSIONAbnormal location of the ventricular lead of the pacemaker. Correlation with function is recommended.No evidence of CHF is seen. There is COPD.Electronically signed by: Michael Laird (Sep 17, 2021 12:00:29)
[2021-09-17 12:05] LABS: BASOPHILS # (AUTO) 0.1 X10^3/uL (0.0-0.1); BASOPHILS % (AUTO) 0.8 % (0.2-1.0); EOSINOPHILS # (AUTO) 0.1 x10^3/uL (0.0-0.2); HEMATOCRIT 35.3 % (36.0-47.0); HEMOGLOBIN 12.1 g/dL (12.0-16.0); LYMPHOCYTES # (AUTO) 2.2 X10^3/uL (1.3-2.9); LYMPHOCYTES % (AUTO) 21.4 % (21.0-51.0); MEAN CORPUSCULAR HEMOGLOBIN 31.6 pg (27.0-34.0); MEAN CORPUSCULAR HGB CONC 34.4 g/dL (33.0-35.0); MEAN CORPUSCULAR VOLUME 91.9 fL (80.0-100.0); MEAN PLATELET VOLUME 7.4 fL (7.4-11.0); MONOCYTES # (AUTO) 0.9 x10^3/uL (0.3-0.8); MONOCYTES % (AUTO) 8.7 % (0.0-13.0); NEUTROPHILS % (AUTO) 68.1 % (42.0-75.0); PLATELET COUNT 264 X10^3/uL (150.0-450.0); RED BLOOD COUNT 3.84 X10^6/uL (3.5-5.4); RED CELL DISTRIBUTION WIDTH 12.5 % (11.6-16.5); WHITE BLOOD COUNT 10.2 X10^3/uL (3.6-10.0)
--- NOTE | 2021-09-17 12:05 | CT ---
HISTORYPT STATES SHE COULD NOT TALK OR REMEMBERED WHO SHE WAS, DIZZY, AND NAUSEATED, SHE COULD NOT GET HER WORDS OUT, FERMIN TRUNCATED ..STUDYCT brain without IV contrastCOMPARISONNoneTECHNIQUEMultiple axial images of the brain were obtained without IV contrast. Dose reduction techniques including Automated Exposure Control (AEC) and adjustment of mA and kV were utilized.FINDINGSVisualized portions of the paranasal sinuses and mastoid air cells are clear. No calvarial fracture is seen. No acute intracranial hemorrhage or mass effect is seen. Prominent diffuse volume loss is seen in the brain with compensatory enlargement of the ventricular system. No evidence of acute CVA. 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 Probable old lacunar infarcts are seen in the aniya. Mild chronic small vessel ischemic changes are seen in the periventricular white matter.IMPRESSIONMild chronic small vessel ischemic changes are seen with prominent diffuse volume loss in the brain. Consider possible dementia. No evidence of acute CVA.Electronically signed by: Michael Laird (Sep 17, 2021 12:03:39)
[2021-09-17 12:26] LABS: ALANINE AMINOTRANSFERASE 20 Units/L (12-78); ALBUMIN 3.6 g/dL (3.4-5.0); ALKALINE PHOSPHATASE 63 Units/L (46-116); ASPARTATE AMINO TRANSFERASE 20 Units/L (15-37); BLOOD UREA NITROGEN 16 mg/dL (7-18); CALCIUM 9.6 mg/dL (8.5-10.1); CARBON DIOXIDE 32.9 mmol/L (21-32); CHLORIDE 99 mmol/L (98-107); CKMB % 2.4 % (<4); CREATINE KINASE 72 Units/L (26-192); CREATINE KINASE MB 1.7 ng/mL (0-4.0); CREATININE 0.74 mg/dL (0.55-1.02); SODIUM 135 mmol/L (136-145); TOTAL PROTEIN 7.2 g/dL (6.4-8.2); TROPONIN I < 0.02 ng/mL (0-1.5); eGFR NON BLACK RACES > 60 (>60)
[2021-09-17] MEDS ORDERED: VOLTAREN 1 % GEL MULTI DOSE TUBE TOP PRN (15:24)
--- NOTE | 2021-09-17 17:57 | DR.H&P ---
H&P - History & Physical for Day of: H&P Date: 09/17/21 - Chief Complaint Chief Complaint: AMS - History of Present Illness History of Present Illness: PT IS 86 WF ER ADMISSION AFTER BEING REFERRED FROM DR ARSHAD OFFICE FOR STAT CT HEAD RO ACUTE CVA. PT HAD EPISODE OF CONFUSION AND WEAKNESS, WITNESSED. EPISODE WAS BRIEF, UPON EXAM IN THE OFFICE PT BY 147/102. PT HAD PMH OF AFIB PACER, ON ELIQUIS AND REPORTS COMPLIANT WITH MEDICATION. PT REPORTS SHE HAD BEEN ANXIOUS DUE TO "DO BEFORE THANKSGI" PT HAD CT HEAD IN ER AND ADMITTED FOR TREATMENT OF TIA VS CVA. - Past Medical History Past Medical History: Arthritis Additional Medical History: AFIB - Past Surgical History Surgical History: Appendectomy, Hysterectomy - Family History Family Medical History: Hypertension - Social History Does patient currently use any type of tobacco product: No Have you used tobacco products in the last 12 months: No Type of Tobacco Use: None Does any household member use tobacco: No Alcohol Use: None Drug Use: None - Medications Home Medications: codeine Allergy (Verified 03/14/18 17:20) CONTINUE taking the following medications apixaban [Eliquis] 2.5 mg PO BID 09/17/21 [History] digoxin 250 mcg PO DAILY 09/17/21 [History] rosuvastatin 10 mg PO QHS 09/17/21 [History] - Review of Systems Constitutional: Weakness Eyes: No Symptoms Reported ENT: No Symptoms Reported Respiratory: No Symptoms Reported Cardiovascular: Chest Pain Genitourinary: No Symptoms Reported Musculoskeletal: No Symptoms Reported Skin: No Symptoms Reported Neurological: Change in Speech, Confusion - Physical Exam Vital Signs: Temperature 97.7 F Pulse Rate [Left Radial] 87 Pulse Rate 72 Respiratory Rate 22 Blood Pressure [Left Arm] 136/81 Blood Pressure 168/98 O2 Sat by Pulse Oximetry 97 Oriented: Normal Eyes: Normal Ear: Normal Throat: Normal Respiratory: Clear Throughout Cardiovascular: Normal, Other (PACER PRESENT) : Normal Auscultation: Bowel Sounds: Normal Palpation: Normal Tenderness: Normal Skin: Decreased Turgur Musculoskeletal: Normal Psychiatric: Anxiety Affect: Anxious Speech Pattern: Clear, Appropriate - Assessment/Plan (1) Acute reversible ischemic neurologic deficit Status: Acute Plan: ADMIT, CT HEAD ON ADMISSION. SERIAL CE, EKG. ADMISSION LABS, CARDIAC MONITORING. VERIFY HOME MEDICATIONS. STRICT I&OS. CXR ON ADMISSION (2) Brain TIA Status: Acute (3) A-fib Qualifiers: Atrial fibrillation type: unspecified Qualified Code(s): I48.91 - Unspecified atrial fibrillation Status: Acute (4) Benign essential HTN Status: Acute (5) Pacemaker Status: Acute - Allergies Allergies/Adverse Reactions: Allergies Allergy/AdvReac Type Severity Reaction Status Date / Time codeine Allergy Verified 03/14/18 17:20
[2021-09-17] MEDS: ELIQUIS PO SCH (20:47)
[2021-09-17] MEDS ORDERED: CRESTOR TAB 10 MG PO SCH (21:00)
[2021-09-18 06:07] LABS: BASOPHILS # (AUTO) 0.1 X10^3/uL (0.0-0.1); BASOPHILS % (AUTO) 0.9 % (0.2-1.0); EOSINOPHILS # (AUTO) 0.2 x10^3/uL (0.0-0.2); EOSINOPHILS % (AUTO) 2.2 % (0.9-2.9); HEMATOCRIT 33.2 % (36.0-47.0); HEMOGLOBIN 11.4 g/dL (12.0-16.0); LYMPHOCYTES # (AUTO) 1.9 X10^3/uL (1.3-2.9); LYMPHOCYTES % (AUTO) 25.8 % (21.0-51.0); MEAN CORPUSCULAR HEMOGLOBIN 31.3 pg (27.0-34.0); MEAN CORPUSCULAR HGB CONC 34.4 g/dL (33.0-35.0); MEAN CORPUSCULAR VOLUME 91.1 fL (80.0-100.0); MEAN PLATELET VOLUME 7.6 fL (7.4-11.0); MONOCYTES # (AUTO) 0.8 x10^3/uL (0.3-0.8); MONOCYTES % (AUTO) 10.3 % (0.0-13.0); NEUTROPHILS # (AUTO) 4.5 x10^3/uL (2.2-4.8); NEUTROPHILS % (AUTO) 60.8 % (42.0-75.0); PLATELET COUNT 250 X10^3/uL (150.0-450.0); RED BLOOD COUNT 3.64 X10^6/uL (3.5-5.4); RED CELL DISTRIBUTION WIDTH 12.5 % (11.6-16.5); WHITE BLOOD COUNT 7.3 X10^3/uL (3.6-10.0)
[2021-09-18 06:21] LABS: ALANINE AMINOTRANSFERASE 19 Units/L (12-78); ALKALINE PHOSPHATASE 55 Units/L (46-116); ASPARTATE AMINO TRANSFERASE 15 Units/L (15-37); BLOOD UREA NITROGEN 13 mg/dL (7-18); CALCIUM 8.9 mg/dL (8.5-10.1); CHLORIDE 104 mmol/L (98-107); COR CA(FOR HYPOALB) 9.7 mg/dL (8.5-10.1); CREATININE 0.77 mg/dL (0.55-1.02); SODIUM 139 mmol/L (136-145); TOTAL PROTEIN 6.2 g/dL (6.4-8.2); eGFR NON BLACK RACES > 60 (>60)
[2021-09-18] MEDS ORDERED: ASPIRIN EC 81 MG PO SCH (09:00)
[2021-09-18] MEDS ORDERED: LANOXIN PO SCH (09:00)
[2021-09-18] MEDS ORDERED: ZESTRIL TAB 10 MG PO SCH (09:00)
[2021-09-18] MEDS: ELIQUIS PO SCH (09:21)
--- NOTE | 2021-09-18 10:06 | VAS ---
HISTORY: Concern for carotid artery stenosis. Carotid atherosclerosis.EXAM: BILATERAL DOPPLER CAROTID ULTRASOUND EXAMTechnique: Multiple lam scale and color flow Doppler images of the right and left carotid arterial system were obtained. The vertebral arterial system was evaluated as well.Findings:Nonocclusive color flow Doppler is seen throughout the right and left carotid arterial system. No hemodynamically significant carotid arterial stenosis is seen based on velocity criteria. There is [id number] bilateral carotid atherosclerosis and mixed atherosclerotic plaque formation of the bilateral carotid bulbs and ICAs with associated intimal thickening but without evidence for high-grade stenosis (>70%) or occlusion of the carotid arteries. The right and left vertebral artery demonstrate antegrade flow.IMPRESSION:Vtgu-wi-[id number] bilateral carotid atherosclerosis and mixed atherosclerotic plaque formation of the bilateral carotid bulbs and [in both] ICAs with [id number] associated carotid intimal thickening but without evidence for high-grade stenosis or occlusion of the carotid arteries, based on Doppler velocity criteria.Appropriate, antegrade, vertebral arterial flow.Peak right ICA velocity: 82 centimeter/seconds.Peak right CCA velocity: 89 centimeter/seconds.Peak left ICA velocity: 81 centimeter/seconds.Peak left CCA velocity: 80 centimeter/seconds.Right ICA to CCA ratio: 0.92.Left ICA to CCA ratio: 1.0.Electronically signed by: SHAWNA COLLAZO III (Sep 18, 2021 10:04:37)
[2021-09-18 13:13] VITALS: BP 123/64
== END 2021-09-18 17:20 | disposition home or self-care (01) ==
LOC: MED/SURG 11:07 → ER 11:07 → MED/SURG 14:52
PROVIDERS: ADMIT Internal Medicine; ATTEND Internal Medicine
DX: I63.89 Other cerebral infarction; Z20.822 Contact with and (suspected) exposure to COVID-19; I11.9 Hypertensive heart disease without heart failure; I48.91 Unspecified atrial fibrillation; G45.8 Other transient cerebral ischemic attacks and related syndromes; Z95.0 Presence of cardiac pacemaker; R41.82 Altered mental status, unspecified; Z79.01 Long term (current) use of anticoagulants